=== PATIENT | female | born 1975 | race Two or more races ===

== ENCOUNTER 2018-08-01 22:51 | Emergency (ER) | payer OTHER ==
[2018-08-01 23:10] LABS: #Eosinphils 0.1 thou/uL (0.0-0.7); #Monocytes 0.5 thou/uL (0.11-0.59); #Neutrophils 4.4 thou/uL (1.40-6.50); %Basophils 0.6 % (0.0-1.0); %Eosinophils 1.5 % (0.0-10.0); %Lymphocytes 36.7 % (21.0-51.0); %Monocytes 6.2 % (0.0-10.0); Hemoglobin 13.6 g/dL (12.0-16.0); Mean Corpuscular HGB CONC 33.7 g/dL (32.0-36.0); Mean Corpuscular Hemoglobin 31.9 pg (27.0-31.0); Mean Corpuscular Volume 94.6 fL (78.0-98.0); Mean Platelet Volume 7.7 fL (7.4-10.4); Platelet Count 187 thou/uL (130-400); RBC Distribution Width 11.7 % (11.5-14.5); Red Blood Cell (RBC) Count 4.26 mill/uL (4.20-5.40); White Blood Cell (WBC) Count 8.1 thou/uL (4.8-10.8)
--- NOTE | 2018-08-01 23:30 | CT ---
CT HEAD WITHOUT IV CONTRAST COMPARISON: None HISTORY: TECHNIQUE: Axial CT imaging at 5 mm intervals from vertex through skull base without contrast FINDINGS: There is no evidence of an acute infarction, hemorrhage, mass effect, or midline shift. The ventricul ar system is normal in size, shape, and position. Visualized paranasal sinuses are clear. Osseous structures appear intact. IMPRESSION: 1. No acute intracranial abnormality demonstrated.
[2018-08-01 23:31] LABS: ALT (SGPT) 7 U/L (8-55); AST (SGOT) 13 U/L (5-34); Alkaline Phosphatase 73 U/L (40-150); Anion Gap 11 mmol/L (10-20); BUN (Urea Nitrogen) 15 mg/dL (7.0-18.7); Bilirubin, Total 0.6 mg/dL (0.2-1.2); Calc. Creatinine Clearance 0 mL/min (70-130); Calcium 9.5 mg/dL (7.8-10.44); Carbon Dioxide 26 mmol/L (22-29); Chloride 106 mmol/L (98-107); Estimated GFR-MDRD 75; Globulin 3.4 g/dL (2.4-3.5); Glucose 100 mg/dL (70-105); Potassium 3.3 mmol/L (3.5-5.1); Protein, Total 7.4 g/dL (6.0-8.3); Sodium 140 mmol/L (136-145)
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
[2018-08-01] MEDS ORDERED: Acetaminophen 325 MG TAB ONE (23:57)
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
== END 2018-08-02 00:06 | disposition short-term general hospital (02) ==
LOC: ERS 22:51
DX: S16.1XXA Strain of muscle, fascia and tendon at neck level, initial encounter (principal); V43.92XA Unspecified car occupant injured in collision with other type car in traffic accident, initial encounter
CPT/HCPCS: 70450; 71045; 72125; 74177; 80053; 85025; G0390